=== PATIENT | female | born 1935 | race Caucasian/White ===

== ENCOUNTER 2017-04-30 05:30 | Inpatient (IN) | payer OTHER ==
[~2017-04-30] VITALS: Ht 175.3 cm; Wt 93.2 kg
[~2017-04-30 05:30] MED LIST: ALTACE10 MG PO; ANALGESIC325 MG PO; Bactrim,Septra DS 80 PO; Biotin PO; COUMADIN,JANTO7.5 MG PO; COUMADIN,JANTOV10 MG PO; CRESTOR10 MG PO; DULCOLAX10 MG PR; Flexeril PO; GLUCOVANCE 51 TABLET PO; JANUVIA25 M1 PO; LOPRESSOR100 MG PO; PERCOCET 10/1 TABLET PO; THERAGRAN1 TABLET PO; XARELTO10 MG PO; Zocor PO; [UNRECOGNIZED DRUG - OTHER] SC
[2017-04-30 06:12] VITALS: BP 138/92
[2017-04-30 06:19] LABS: POINT-OF-CARE METER ID UU13113694
[2017-04-30 09:25] LABS: POINT-OF-CARE METER ID UU13113675
[2017-04-30 09:49] LABS: HEMATOCRIT 42.7 % (36.0-46.0); MCH 29.5 PG (29.0-34.0); MCHC 32.6 G/DL (30.0-36.0); MCV 90.7 FL (83-99); MEAN PLAT.VOLUME 9.6 uM^3 (9.5-12.4); PLATELET COUNT 256 K/uL (156-360); RBC DIS.WIDTH-CV 13.3 % (11.8-14.6); RBC DIS.WIDTH-SD 44.7 % (39-53); RED BLOOD COUNT 4.71 M/uL (3.80-5.20); WHITE BLOOD COUNT 5.8 K/uL (4.1-10.2)
[2017-04-30 11:20] VITALS: BP 152/74
[2017-04-30 12:09] LABS: POINT-OF-CARE METER ID UU13113712
[2017-04-30 16:14] LABS: POINT-OF-CARE METER ID UU13113712
[2017-04-30 16:15] VITALS: BP 174/79
[2017-04-30 20:20] VITALS: BP 160/92
[2017-04-30 21:51] LABS: POINT-OF-CARE METER ID UU13113712
[2017-05-01 00:26] VITALS: BP 150/88
[2017-05-01 04:03] VITALS: BP 162/88
[2017-05-01 06:44] LABS: HEMATOCRIT 39.9 % (36.0-46.0); MCV 90.1 FL (83-99)
[2017-05-01 06:46] LABS: INTER. NORMALIZED RATIO 1.1; PROTHROMBIN TIME 10.9 (9.2-11.2)
[2017-05-01 06:53] LABS: ANION GAP 10 MEQ/L (2-14); CHLORIDE 96 MEQ/L (99-109); GFR ESTIMATE (CALCULATED) > 59 mL/min/; GLUCOSE 143 mg/dL (70-99); POTASSIUM 4.2 MEQ/L (3.7-5.4); SAMPLE HEMOLYSIS CHECK 0; SAMPLE ICTERIC CHECK 0; SAMPLE LIPEMIA CHECK 0; SODIUM 132 MEQ/L (136-147); UREA NITROGEN (BUN) 20 mg/dL (9-23)
[2017-05-01 07:33] VITALS: BP 158/92
[2017-05-01 11:42] VITALS: BP 134/88
[2017-05-01 11:51] LABS: POINT-OF-CARE METER ID UU13113712
[2017-05-01 16:01] VITALS: BP 179/83
[2017-05-01 16:40] LABS: POINT-OF-CARE METER ID UU13113712
[2017-05-01 19:59] VITALS: BP 161/78
[2017-05-01 22:17] LABS: POINT-OF-CARE METER ID UU13113712
[2017-05-02 00:29] VITALS: BP 131/75
[2017-05-02 04:30] VITALS: BP 133/77
[2017-05-02 06:50] LABS: HEMATOCRIT 37.5 % (36.0-46.0); MCV 89.1 FL (83-99)
[2017-05-02 07:07] LABS: INTER. NORMALIZED RATIO 1.1; PROTHROMBIN TIME 11.2 (9.2-11.2)
[2017-05-02 07:31] LABS: POINT-OF-CARE METER ID UU13113712
[2017-05-02 08:00] VITALS: BP 149/73
[2017-05-02] MEDS ORDERED: OXYCODONE HCL5 MG PO (08:32)
[2017-05-02] MEDS ORDERED: LOVENOX40 MG/0.4 SC (08:32)
[2017-05-02] MEDS ORDERED: SENNA PLUS TAB1 EACH PO (08:32)
[2017-05-02 11:32] LABS: POINT-OF-CARE METER ID UU13113712
[2017-05-02 11:43] VITALS: BP 193/91
[2017-05-02 15:45] VITALS: BP 158/79
[2017-05-02 16:40] LABS: POINT-OF-CARE METER ID UU13113712
[2017-05-02 20:02] VITALS: BP 132/64
[2017-05-02 22:18] LABS: POINT-OF-CARE METER ID UU13113712
[2017-05-03] VITALS: BP 162/80
[2017-05-03 03:47] VITALS: BP 162/72
[2017-05-03 07:43] LABS: POINT-OF-CARE METER ID UU13113712
[2017-05-03 08:01] VITALS: BP 145/75
[2017-05-03 11:47] LABS: POINT-OF-CARE METER ID UU13113712
[2017-05-03 12:04] VITALS: BP 137/86
[2017-05-03 16:10] VITALS: BP 186/81
[2017-05-03 16:45] LABS: POINT-OF-CARE METER ID UU14149397
[2017-05-03 23:00] VITALS: BP 156/72
[2017-05-04 06:42] LABS: POINT-OF-CARE METER ID UU14188577
[2017-05-04 08:19] VITALS: BP 173/85
== END 2017-05-04 11:05 | DRG 470 ==
LOC: 2SOUTH 05:30 → 3WEST 05:30 → 2SOUTH 09:50 → 3WEST 11:02 → 2SOUTH 12:48 → 3WEST 05-03 12:56 → 3EAST 05-03 16:03
PROVIDERS: Orthopaedic Surgery
PROC: 0SRC0J9 Replacement of Right Knee Joint with Synthetic Substitute, Cemented, Open Approach (ICD-10-PCS; principal; 2017-04-30)
DX: M17.11 Unilateral primary osteoarthritis, right knee (principal); G89.18 Other acute postprocedural pain; E11.51 Type 2 diabetes mellitus with diabetic peripheral angiopathy without gangrene; I10 Essential (primary) hypertension; E78.2 Mixed hyperlipidemia; I25.10 Atherosclerotic heart disease of native coronary artery without angina pectoris; I48.2 Chronic atrial fibrillation; E66.3 Overweight; Z68.30 Body mass index [BMI] 30.0-30.9, adult; I25.2 Old myocardial infarction; Z79.4 Long term (current) use of insulin; Z79.84 Long term (current) use of oral hypoglycemic drugs; Z79.01 Long term (current) use of anticoagulants; Z88.0 Allergy status to penicillin; Z88.5 Allergy status to narcotic agent
CPT/HCPCS: 71010; 73560; 80048; 82948; 85014; 85018; 85027; 85610; 87641; 97530 GP; C1713; J0131; J1170; J1650; J1815; J2250; J2405; J7050